=== PATIENT | male | born 1975 | race Two or more races ===

== ENCOUNTER 2023-09-15 23:25 | Emergency (ER) | payer OTHER ==
[~2023-09-15] VITALS: Ht 180.3 cm; Wt 74.8 kg
[2023-09-16] VITALS: BP 134/88; TEMP 98; O2SAT 99
== END 2023-09-16 00:01 | disposition home or self-care (01) ==
LOC: ER 23:36
DX: S01.21XA Laceration without foreign body of nose, initial encounter (principal); W22.8XXA Striking against or struck by other objects, initial encounter; Y93.89 Activity, other specified; Y92.89 Other specified places as the place of occurrence of the external cause; Y99.8 Other external cause status